=== PATIENT | female | born 1985 | race African-American/Black ===

== ENCOUNTER 2019-03-26 15:46 | Emergency (ER) | payer OTHER ==
[~2019-03-26] VITALS: Ht 167.6 cm; Wt 48.1 kg
[2019-03-26 15:56] VITALS: BP 104/75
[2019-03-26 16:16] LABS: INFLUENZA A ANTIGEN Negative (Negative); INFLUENZA B ANTIGEN Negative (Negative)
[2019-03-26] MEDS ORDERED: ZOFRAN ODT4 MG SUBLING (16:34)
[2019-03-26] MEDS ORDERED: TAMIFLU75 MG PO (16:52)
== END 2019-03-26 16:42 | disposition home or self-care (01) ==
LOC: M.ERS 15:46
PROVIDERS: Family Medicine
DX: B34.9 Viral infection, unspecified (principal)